=== PATIENT | female | born 2000 | race Caucasian/White ===

== ENCOUNTER 2018-03-30 06:04 | Day surgery (SDC) | payer MEDICAID, OTHER ==
[2018-03-28 16:05] VITALS: BMI 22.8
[~2018-03-30 06:04] MED LIST: CLINDAMYCIN 600 MG in DEXTROSE 5% IN WATER 50 ML IVPB ONE; DEXAMETHASONE SOD PHOSPHATE 10 MG/ML 1 ML VIAL IV ONE; DEXAMETHASONE SOD PHOSPHATE 4 MG/ML 1 ML VIAL IV ONE; FAMOTIDINE 20 MG/2 ML VIAL IV ONE; LACTATED RINGERS 1,000 ML IV SCH; LIDOCAINE 1% 20 ML VIAL (10MG/ML) FOR IV START INTRADERMA PRN; MIDAZOLAM (PF) 2 MG/2 ML VIAL IV PRN; ONDANSETRON 4 MG/2 ML VIAL IVP ONE; fentaNYL (PF) 50 MCG/ML 2 ML AMP IV PRN
[2018-03-30] MEDS ORDERED: SCOPOLAMINE 1.5MG/72HR PATCH TRANSDERM ONE (07:00)
[2018-03-30] MEDS ORDERED: OXYMETAZOLINE 0.05% NASL SPRAY 1 SPRAY BOTTLE NASAL ONE (07:04)
[2018-03-30] MEDS ORDERED: LACTATED RINGERS 1,000 ML IV ONE ×2 (07:04→10:54)
[2018-03-30] MEDS ORDERED: MIDAZOLAM 2 MG/2 ML VIAL ONE (07:28)
[2018-03-30] MEDS ORDERED: ROCURONIUM BROMIDE 10 MG/ML 10 ML VIAL IV ONE (07:28)
[2018-03-30] MEDS ORDERED: DEXAMETHASONE SOD PHOS (MDV) 100 MG/10 ML VIAL ONE (07:28)
[2018-03-30] MEDS ORDERED: LIDOCAINE 1% INJ 10MG/ML (20 ML MDV) ONE (07:28)
[2018-03-30] MEDS ORDERED: BUPIVACAIN-EPI 0.5%-1:200,000 30 ML VIAL SQ ONE ×2 (07:58)
[2018-03-30] MEDS ORDERED: LIDOCAINE 1%-EPI 1:100,000 20 ML VIAL SQ ONE ×2 (07:58)
[2018-03-30] MEDS ORDERED: FLUORESCEIN STRIPS 1 MG STRIP MISCELLANE ONE (07:59)
[2018-03-30] MEDS ORDERED: EPINEPHrine 1 MG/ML (MDV) 30 ML VIAL TOPICAL ONE (07:59)
[2018-03-30 09:11] VITALS: TEMP 97.7
[2018-03-30 09:17] VITALS: RESP 16
[2018-03-30] MEDS: HYDROmorphone 0.5 MG/0.5 ML SYRINGE IVP PRN ×2 (09:19→09:33)
--- NOTE | 2018-03-30 09:26 | P.OP ---
Date of Procedure: 03/30/18 Preoperative Diagnosis: Chronic sinusitis Deviated nasal septum Bilateral hypertrophy of inferior nasal turbinates with obstruction Postoperative Diagnosis: Same Procedure(s) Performed: Bilateral functional endoscopic sinus surgery with bilateral maxillary antrostomies and bilateral total ethmoidectomies Septoplasty Bilateral submucosal resection of the inferior turbinates with outfracture and compression Anesthesia: REGLA Surgeon: Bladimir Mendoza Estimated Blood Loss (ml): 15 Pathology: other (Sinonasal) Condition: stable Disposition: PACU Indications for Procedure: This patient is a 17-year-old white female who continues to have sinonasal symptoms including discolored yellow and green drainage nasal obstruction etc. she's failed medical therapy and her problems persist. In spite of antibiotic therapy ALLERGY treatment etc. she had continued infectious issues. After long discussion we recommended sinus surgery septoplasty and turbinate surgery. All risks, benefits, and alternative therapies were discussed. Consent was obtained and all questions were answered. Need for the septoplasty was the very tight nasal aperture that was noted intranasally and any deviation caused limited access. Operative Findings: Evidence of diseased tissue chronic sinusitis deviated septum and large obstructive inferior turbinates were noted. Description of Procedure: This patient was taken to the operative room and placed in the supine position. A general inhalation anesthetic was administered to the patient by the department of anesthesia with a functioning IV line in place. The patient was monitored throughout the entire case by the department of anesthesia. The eyes were taped shut for protection. The patient was placed in a slight reverse Trendelenburg position. The patient had previously utilize Afrin nasal spray preoperatively. The nose was evaluated and the septum lateral nasal wall and inferior turbinates were injected with lidocaine 1% with epinephrine 1 100,000 bilaterally. Approximately 10 minutes were allowed wait for full vasoconstrictive effects to take place. At this point a caudal incision was made over the caudal portion of the left septum down to the mucoperichondrium. A mucoperichondrial flap was elevated on the left side and dissection was carried with use of tunnels posteriorly. We then made a crossover incision through the cartilage to the contralateral side and for the mucoperichondrial flap development was performed to the extent of visualization on the contralateral side. After the cartilage was freed with use of several crosshatching incisions and removal of some redundant strips of septal cartilage, the septum was straightened and placed back in the midline. The septum was sutured fixated to the ovarian groove. Excellent straightening occurred and the septum was visibly straight. Incision was closed with a 40 rapid Vicryl. We utilized a running nonlocking fashion for closure of the incision. A quilting stitch was used to reapproximate the septal flaps with use of a 40 rapid Vicryl. We then entered the nose with a 0 and 30 Lee mayito endoscope. Previous to this we did inject the lateral nasal wall and middle turbinate and uncinate process with lidocaine 1% with epinephrine 1 100,000. Approximately 10 minutes were allowed wait for full vasoconstrictive effects to take place. With use of a microdebrider and a pediatric backbiter, we took down the uncinate process bilaterally. We then opened the maxillary sinuses bilaterally. We utilized a microdebrider for this and entered the maxillary sinuses and removed diseased tissue. This was done bilaterally. After the maxillary sinuses were opened and the diseased tissue was removed we entered the ethmoid bulla and with use of a microdebrider and up-biting normas arpan Aguilar, we followed the fovea frontalis through the basal lamella and into the posterior ethmoid air cells and did a total ethmoidectomy. We removed the anterior ethmoid air cells with use of a microdebrider and up-biting boss. After all the anterior ethmoid air cells were removed we did the same in the posterior ethmoid. A total ethmoidectomy was completed in that fashion with removal of all the anterior and posterior ethmoid air cells and diseased tissue. Ethmoid sinuses were opened totally. Xerogel was inserted and minimal bleeding was encountered. We reinspected the skull base there is no signs of any orbital penetration or signs of any intracranial penetration. The sugical site was reinspected after the xerogel was placed and no bleeding was seen. Intranasal splints were inserted and fixated at the end of the case. We utilized Yang nasal splints. Nasopore was used laterally. There will be removed and the patient returns to the office. Attention was then paid to the inferior turbinates. The bilateral inferior turbinates were hypertrophic and obstructive. We entered the anterior portion of the inferior turbinates with use of a microdebrider. We remove bone and submucosal elements with use of a microdebrider bilaterally. The inferior turbinates underwent a submucosal resection with removal of submucosal tissue and bone. We obtained a much better and normal in size for breathing. The inferior turbinates were then outfractured and compressed with a [employer] nasal elevator. Excellent airway was obtained and was symmetric bilaterally. No bleeding was encountered.
[2018-03-30] MEDS ORDERED: PROMETHAZINE INJ 12.5 MG in SODIUM CHLORIDE 0.9% 50 ML IVPB STA (10:44)
[2018-03-30] MEDS ORDERED: PROMETHAZINE INJ 25 MG/ML 1 ML VIAL IVPB ONE (10:49)
[2018-03-30] MEDS ORDERED: HYDROcodone/APAP 5-325MG 1 EACH TAB PO ONE ×2 (11:08→12:23)
[2018-03-30 12:25] VITALS: BP 127/85; PULSE 93
== END 2018-03-30 12:50 | disposition home or self-care (01) ==
LOC: OR 06:04
PROVIDERS: ATTEND Otolaryngology
DX: J32.0 Chronic maxillary sinusitis (principal); J32.2 Chronic ethmoidal sinusitis; J34.2 Deviated nasal septum; J34.3 Hypertrophy of nasal turbinates; I38 Endocarditis, valve unspecified; J30.2 Other seasonal allergic rhinitis; A69.20 Lyme disease, unspecified; Z79.899 Other long term (current) drug therapy; Z88.0 Allergy status to penicillin
CPT/HCPCS: 81025; 88305; 31267; 31255; 30520; 30140; J0171; J2250; J1100 ×2; J2550; J2405; J2001; J1170

== ENCOUNTER 2018-04-05 23:21 | Emergency (ER) | payer MEDICAID, OTHER ==
[2018-04-05 23:30] VITALS: TEMP 98.4
[2018-04-06] MEDS ORDERED: SODIUM CHLORIDE 0.9% 1,000 ML IV STA (00:08)
[2018-04-06] MEDS ORDERED: PROMETHAZINE INJ 25 MG in SODIUM CHLORIDE 0.9% 50 ML IVPB STA (00:08)
[2018-04-06] MEDS ORDERED: KETOROLAC 30 MG/ML 1 ML VIAL IVP STA (00:08)
[2018-04-06] MEDS ORDERED: diphenhydrAMINE 50 MG/ML 1 ML VIAL IVP STA (00:08)
--- NOTE | 2018-04-06 00:54 | ED ---
Headache HPI - General Chief Complaint: Headache Stated Complaint: Hx Migraines Online Check In Time Seen by Provider: 04/06/18 00:00 Mode of arrival: ambulatory Limitations: no limitations - History of Present Illness Initial Comments: 17-year-old female patient presents to the emergency department today for evaluation of migraine headache. Patient states that the headache started sometime this morning. Patient states that she has had sensitivity to light and sound with this. States she is nauseated and has vomited this evening. She denies any dizziness or weakness with this. Denies any numbness or tingling to her extremities. Denies any focal weakness. Patient does have history of migraine headaches and states that her symptoms are consistent with her usual migraine pattern. Patient did have sinus surgery 6 days ago, denies any significant facial pain. Denies any fevers or chills. Patient denies any recent rash, shortness breath, chest pain, abdominal pain, diarrhea, constipation, back pain, hematuria, dysuria, urinary urgency, urinary frequency , or any other complaints. Denies any chance of , states she did have a negative test prior to her surgery. - Related Data Home Medications Medication Instructions Recorded Confirmed Lamisil(Unknown Dose) 1 tab PO DAILY 03/28/18 04/06/18 Welchol(Unknown Dose) 3 tab PO DAILY 03/28/18 04/06/18 Previous Rx's Medication Instructions Recorded HYDROcodone/APAP 5-325MG [Castle 1 - 2 tab PO Q4-6H PRN 3 Days #36 03/30/18 5-325] tab Meloxicam [Mobic] 15 mg PO DAILY #10 tab 03/30/18 predniSONE 20 mg PO DIRECTED #15 tab 03/30/18 Allergies Allergy/AdvReac Type Severity Reaction Status Date / Time amoxicillin Allergy Rash/Hives/facial Verified 04/05/18 23:30 swelling Review of Systems ROS Statement: Those systems with pertinent positive or pertinent negative responses have been documented in the HPI. ROS Other: All systems not noted in ROS Statement are negative. Past Medical History Additional Past Medical History / Comment(s): hx. of arrythmia, seasonal allergies, hx. Lyme's disease-takes welchol for History of Any Multi-Drug Resistant Organisms: None Reported Past Surgical History: Cardiac Ablation, Cholecystectomy, Orthopedic Surgery Additional Past Surgical History / Comment(s): ablation done by Dr Bower [facility] 2017, ACL reconstruction left knee, Sinus surgery Past Anesthesia/Blood Transfusion Reactions: No Reported Reaction Past Psychological History: No Psychological Hx Reported Smoking Status: Never smoker Past Alcohol Use History: None Reported Past Drug Use History: None Reported - Past Family History Mother Family Medical History: No Reported History General Exam Limitations: no limitations General appearance: alert, in no apparent distress, other (This is a well- developed, well-nourished adult female patient in no acute distress. Vital signs upon presentation are temperature 98.4F, pulse 89, respirations 18, blood pressure 126/81, pulse ox 100% on room air.) Eye exam: Present: normal appearance, PERRL, EOMI. Absent: scleral icterus, conjunctival injection, nystagmus, periorbital swelling ENT exam: Present: normal exam, normal oropharynx, mucous membranes moist Respiratory exam: Present: normal lung sounds bilaterally. Absent: respiratory distress, wheezes, rales, rhonchi, stridor Cardiovascular Exam: Present: regular rate, normal rhythm, normal heart sounds. Absent: systolic murmur, diastolic murmur, rubs, gallop, clicks GI/Abdominal exam: Present: soft, normal bowel sounds. Absent: distended, tenderness, guarding, rebound, rigid Neurological exam: Present: alert, oriented X3, CN II-XII intact, other ( Strength in all 4 extremities is 5/5.) Psychiatric exam: Present: normal affect, normal mood Skin exam: Present: warm, dry, intact, normal color. Absent: rash Course Vital Signs 04/05/18 04/06/18 04/06/18 23:27 00:50 01:00 Temperature 98.4 F Pulse Rate 89 79 70 Respiratory 18 16 15 Rate Blood Pressure 126/81 122/79 111/68 O2 Sat by Pulse 100 100 100 Oximetry 04/06/18 01:30 Temperature Pulse Rate 77 Respiratory 15 Rate Blood Pressure 108/70 O2 Sat by Pulse 100 Oximetry Medical Decision Making - Medical Decision Making 17-year-old female patient with past medical history significant for migraine headache presents to the emergency department today for evaluation of migraine. Patient physical examination is unremarkable. Neurologically intact no focal deficits. Patient states symptoms are consistent with her usual migraine pattern. She reports no new symptoms. Patient was given IV fluids, Phenergan, Benadryl, Toradol initially, states that this did not improve her headache. We did administer a dose of Decadron. Upon reevaluation states she is feeling improved and does feel comfortable being discharged home. She is instructed to follow-up with her primary care physician for recheck in 1-2 days. Return parameters discussed in detail. She verbalizes understanding and agrees with this plan. Disposition Clinical Impression: Migraine headache Disposition: HOME SELF-CARE Condition: Good Instructions (If sedation given, give patient instructions): Migraine Headache (ED) Additional Instructions: Increase fluids. Continue home migraine regimen. Follow-up with your primary care physician for recheck in 1-2 days. Return to the emergency department immediately for any new, worsening, or concerning symptoms. Is patient prescribed a controlled substance at d/c from ED?: No Referrals: Davion Yeung DO [Primary Care Provider] - 1-2 days Time of Disposition: 02:11
[2018-04-06 01:07] VITALS: RESP 15
[2018-04-06] MEDS ORDERED: DEXAMETHASONE SOD PHOSPHATE 10 MG/ML 1 ML VIAL IV STA (01:23)
[2018-04-06 01:40] VITALS: BP 108/70; PULSE 77
== END 2018-04-06 02:17 | disposition home or self-care (01) ==
LOC: EC 23:21
DX: G43.909 Migraine, unspecified, not intractable, without status migrainosus (principal); Z98.890 Other specified postprocedural states; Z79.899 Other long term (current) drug therapy; Z88.0 Allergy status to penicillin
CPT/HCPCS: 99283; 96365; 96375 ×3; 96361; J1200; J1100; J2550; J1885

== ENCOUNTER 2018-09-14 17:10 | Emergency (ER) | payer MEDICAID, OTHER ==
[2018-09-14 17:22] VITALS: RESP 16; TEMP 98.1
[2018-09-14] MEDS ORDERED: METOCLOPRAMIDE 5 MG/ML 2 ML VIAL IVP STA (17:58)
[2018-09-14] MEDS ORDERED: SODIUM CHLORIDE 0.9% 1,000 ML IV STA (17:58)
[2018-09-14] MEDS ORDERED: KETOROLAC 30 MG/ML 1 ML VIAL IVP STA (17:58)
[2018-09-14] MEDS ORDERED: diphenhydrAMINE 50 MG/ML 1 ML VIAL IVP STA (17:58)
--- NOTE | 2018-09-14 17:58 | ED ---
Headache HPI - General Chief Complaint: Headache Stated Complaint: Headache Time Seen by Provider: 09/14/18 17:45 Source: RN notes reviewed, old records reviewed Mode of arrival: ambulatory Limitations: no limitations - History of Present Illness Initial Comments: This is a 18-year-old female the ER for evaluation. Today she presents for evaluation regarding headache and migraine. History of same. Patient gets migraines from history of Lyme disease. Patient has no other significant issues. Migraine is just like prior migraines no trauma no fevers. She had vomiting starting this morning that is been persistent. No diarrhea again no fevers. No abdominal pain MD Complaint: headache, "migraine" -: hour(s) Onset Description: gradual Location: frontal Severity: moderate Severity scale (1-10): 5 Quality: aching, throbbing Consistency: constant Improves With: nothing Worsens With: none Associated Symptoms: nausea, vomiting, photophobia, sensitivity to sound Treatments Prior to Arrival: none - Related Data Home Medications Medication Instructions Recorded Confirmed Colesevelam [Welchol] 1,875 mg PO DAILY 09/14/18 09/14/18 Norgestimate-Ethinyl Estradiol 1 tab PO DAILY 09/14/18 09/14/18 [Tri-Sprintec Tablet] Terbinafine [LamISIL] 250 mg PO DAILY 09/14/18 09/14/18 Allergies Allergy/AdvReac Type Severity Reaction Status Date / Time amoxicillin Allergy Rash/Hives/facial Verified 09/14/18 17:57 swelling Review of Systems ROS Statement: Those systems with pertinent positive or pertinent negative responses have been documented in the HPI. ROS Other: All systems not noted in ROS Statement are negative. Past Medical History Additional Past Medical History / Comment(s): hx. of arrythmia, seasonal allergies, hx. Lyme's disease-takes welchol for, migraines History of Any Multi-Drug Resistant Organisms: None Reported Past Surgical History: Cardiac Ablation, Cholecystectomy, Orthopedic Surgery Additional Past Surgical History / Comment(s): ablation done by Dr Bower [facility] 2017, ACL reconstruction left knee, Sinus surgery Past Anesthesia/Blood Transfusion Reactions: No Reported Reaction Past Psychological History: No Psychological Hx Reported Smoking Status: Never smoker Past Alcohol Use History: None Reported Past Drug Use History: None Reported - Past Family History Mother Family Medical History: No Reported History General Exam Limitations: no limitations General appearance: alert, in no apparent distress Head exam: Present: atraumatic, normocephalic, normal inspection Eye exam: Present: normal appearance, PERRL, EOMI. Absent: scleral icterus, conjunctival injection, periorbital swelling ENT exam: Present: normal exam, mucous membranes moist Neck exam: Present: normal inspection. Absent: tenderness, meningismus, lymphadenopathy Respiratory exam: Present: normal lung sounds bilaterally. Absent: respiratory distress, wheezes, rales, rhonchi, stridor Cardiovascular Exam: Present: regular rate, normal rhythm, normal heart sounds. Absent: systolic murmur, diastolic murmur, rubs, gallop, clicks GI/Abdominal exam: Present: soft, normal bowel sounds. Absent: distended, tenderness, guarding, rebound, rigid Extremities exam: Present: normal inspection, full ROM, normal capillary refill. Absent: tenderness, pedal edema, joint swelling, calf tenderness Back exam: Present: normal inspection Neurological exam: Present: alert, oriented X3, CN II-XII intact Psychiatric exam: Present: normal affect, normal mood Skin exam: Present: warm, dry, intact, normal color. Absent: rash Course Vital Signs 09/14/18 17:18 Temperature 98.1 F Pulse Rate 84 Respiratory 16 Rate Blood Pressure 116/77 O2 Sat by Pulse 99 Oximetry - Reevaluation(s) Reevaluation #1: 09/14/18 18:35 Medical records reviewed Reevaluation #2: 09/14/18 18:35 Headache is currently improved, resolved Medical Decision Making - Medical Decision Making 18 female the ER for evaluation, patient's presented today for evaluation of headache. Headache is currently improved to resolved. Patient has history of migraines migrainous her prior headaches. Patient can be discharged home Disposition Clinical Impression: Migraine, Headache Disposition: HOME SELF-CARE Condition: Good Instructions (If sedation given, give patient instructions): Acute Headache (ED) Is patient prescribed a controlled substance at d/c from ED?: No Referrals: Cameron Vang DO [Primary Care Provider] - 1-2 days
[2018-09-14 18:50] VITALS: BP 96/60; PULSE 68
== END 2018-09-14 19:39 | disposition home or self-care (01) ==
LOC: EC 17:10
DX: G43.909 Migraine, unspecified, not intractable, without status migrainosus (principal); Z79.3 Long term (current) use of hormonal contraceptives; Z79.899 Other long term (current) drug therapy; Z88.0 Allergy status to penicillin; Z86.19 Personal history of other infectious and parasitic diseases
CPT/HCPCS: 99283; 96365; 96375 ×3; 96361; J1200; J2765; J2930; J1885

== ENCOUNTER 2020-02-09 00:33 | Emergency (ER) | payer MEDICAID, OTHER ==
[2020-02-09] MEDS ORDERED: diphenhydrAMINE 50 MG/ML 1 ML VIAL IVP STA (00:51)
[2020-02-09] MEDS ORDERED: SODIUM CHLORIDE 0.9% 1,000 ML IV STA (00:51)
[2020-02-09] MEDS ORDERED: ONDANSETRON 4 MG/2 ML VIAL IVP STA (00:51)
[2020-02-09] MEDS ORDERED: KETOROLAC 15 MG/ML 1 ML VIAL IVP STA (00:51)
--- NOTE | 2020-02-09 01:17 | ED ---
Headache HPI - General Chief Complaint: Headache Stated Complaint: Migraine, Vomiting Time Seen by Provider: 02/09/20 00:39 Mode of arrival: ambulatory - History of Present Illness Initial Comments: Patient is a 19-year-old female, with history of migraines, presenting with a migraine that started about 6 PM this evening. Patient states she does have medications at home for her migraines but does not take any today. She has had some vomiting episodes and continues to feel nauseous along with a mild headache. Patient states this feels like her normal migraines. She states normally she does not have the vomiting. She denies any falls or trauma to her head. She denies any blurry vision, chest pain, shortness of breath. She denies any fever or chills. She denies any neck pain. She states she is not at this time. She has no further complaints at this time. Upon arrival to the ER, her vitals are stable. - Related Data Home Medications Medication Instructions Recorded Confirmed Colesevelam [Welchol] 1,875 mg PO DAILY 09/14/18 09/14/18 Norgestimate-Ethinyl Estradiol 1 tab PO DAILY 09/14/18 09/14/18 [Tri-Sprintec Tablet] Terbinafine [LamISIL] 250 mg PO DAILY 09/14/18 09/14/18 Allergies Allergy/AdvReac Type Severity Reaction Status Date / Time amoxicillin Allergy Rash/Hives/facial Verified 09/14/18 17:57 swelling Review of Systems ROS Statement: Those systems with pertinent positive or pertinent negative responses have been documented in the HPI. ROS Other: All systems not noted in ROS Statement are negative. Past Medical History Additional Past Medical History / Comment(s): hx. of arrythmia, seasonal allergies, hx. Lyme's disease-takes welchol for, migraines History of Any Multi-Drug Resistant Organisms: None Reported Past Surgical History: Cardiac Ablation, Cholecystectomy, Orthopedic Surgery Additional Past Surgical History / Comment(s): ablation done by Dr Bower [facility] 2017, ACL reconstruction left knee, Sinus surgery Past Anesthesia/Blood Transfusion Reactions: No Reported Reaction Past Psychological History: No Psychological Hx Reported Smoking Status: Never smoker Past Alcohol Use History: None Reported Past Drug Use History: None Reported - Past Family History Mother Family Medical History: No Reported History General Exam - General Exam Comments Initial Comments: GENERAL: Patient is well-developed and well-nourished. Patient is nontoxic and in no acute distress, sitting in dark room. HEAD: Atraumatic, normocephalic. EYES: Pupils equal round and reactive to light, extraocular movements intact, sclera anicteric, conjunctiva are normal. Eyelids were unremarkable. ENT: TMs normal, nares patent, oropharynx clear without exudates. Moist mucous membranes. NECK: Normal range of motion, supple without lymphadenopathy or JVD. LUNGS: Unlabored respirations. Breath sounds clear to auscultation bilaterally and equal. No wheezes rales or rhonchi. HEART: Regular rate and rhythm without murmurs, rubs or gallops. ABDOMEN: Soft, nontender, normoactive bowel sounds. No guarding, no rebound. No masses appreciated. : Deferred MUSCULOSKELETAL: Normal extremities with adequate strength and normal range of motion, no pitting or edema. No clubbing or cyanosis. NEUROLOGICAL: Patient is alert and oriented x 3. Motor and sensory are also intact. Cranial nerves II through XII grossly intact. Symmetrical smile. Normal speech, normal gait. PSYCH: Normal mood, normal affect. SKIN: Warm, Dry, normal turgor, no rashes or lesions noted. Course Vital Signs 02/09/20 00:35 Temperature 98.7 F Pulse Rate 97 Respiratory 19 Rate Blood Pressure 144/85 O2 Sat by Pulse 99 Oximetry Medical Decision Making - Medical Decision Making Patient is a 19-year-old female with history of migraines presenting with a migraine since 6 PM along with vomiting. This is similar to her previous migraines. Her vital signs are stable, her exam is unremarkable, no acute neuro deficits. Patient was given fluids, Toradol, Benadryl and Zofran and reports improvement in her symptoms. She states her headache is gone. Patient is stable for discharge. Patient states she does have Zofran and Toradol at home just as Benadryl that she uses occasionally for additional headaches. She'll follow up with her PCP. Return parameters were discussed with the patient she verbalized understanding. Case discussed with Dr. Alexis. Disposition Clinical Impression: Headache Disposition: HOME SELF-CARE Condition: Stable Instructions (If sedation given, give patient instructions): Acute Headache (ED) Additional Instructions: Please return to the Emergency Department if symptoms worsen or any other concerns. Drink plenty of water, rest, follow up with her PCP. Is patient prescribed a controlled substance at d/c from ED?: No Referrals: Davion Yeung, [Primary Care Provider] - 1-2 days
[2020-02-09 02:22] VITALS: BP 110/70; PULSE 92; RESP 18; TEMP 98
== END 2020-02-09 02:23 | disposition home or self-care (01) ==
LOC: EC 00:33
DX: R51.9 Headache, unspecified (principal); Z79.899 Other long term (current) drug therapy; Z88.0 Allergy status to penicillin
CPT/HCPCS: 99283; 96374; 96375 ×2; 96361; J1200; J2405; J1885

== ENCOUNTER → 2023-03-05 | Outpatient (CLI) | payer MEDICAID, OTHER ==
[2023-03-05 11:41] LABS: Glucose 2 Hour 95 mg/dL
== END | disposition home or self-care (01) ==
LOC: LABWHC1 08:24
PROVIDERS: ATTEND Obstetrics & Gynecology
DX: E28.2 Polycystic ovarian syndrome (principal)
CPT/HCPCS: 36415; 82951